=== PATIENT | male | born 1950 | race Caucasian/White ===

== ENCOUNTER 2019-05-05 09:47 | Outpatient (REF) | payer MEDICARE, SELFPAY ==
[2019-05-05 19:19] LABS: Hemoglobin A1C 5.5 % (4.5-6.2)
[2019-05-05 19:43] LABS: ALT 29 U/L (16-63); AST 11 U/L (15-37); Albumin 4.4 g/dL (3.4-5.0); Alkaline Phosphatase 72 U/L (46-116); Anion Gap 9.1 mmol/L (3-11); BUN 16 mg/dL (7-18); Bilirubin, Total 0.8 mg/dL (0.2-1.0); CO2 23.9 mmol/L (21.0-32.0); CREATININE 0.79 mg/dL (0.70-1.30); Calcium 9.3 mg/dL (8.5-10.1); Calculated LDL 84 mg/dL; Chloride 100 mmol/L (98-107); Cholesterol 145 mg/dL (50-200); Glucose 118 mg/dL (70-100); HDL Cholesterol 56 mg/dL (40-60); Sodium 133 mmol/L (136-145); Total Protein 7.3 g/dL (6.4-8.2); Triglyceride 26 mg/dL (30-150)
[2019-05-05 20:58] LABS: Bilirubin, Direct 0.19 mg/dL (0.00-0.20)
== END 2019-05-05 10:07 ==
LOC: NCHCN 09:47
PROVIDERS: PCP Nurse Practitioner Family; Visit Provider Nurse Practitioner Family
DX: R73.9 Hyperglycemia, unspecified (principal); I10 Essential (primary) hypertension; F10.10 Alcohol abuse, uncomplicated; Z13.220 Encounter for screening for lipoid disorders
CPT/HCPCS: 80048; 80061; 80076; 83036

== ENCOUNTER 2020-06-12 10:41 | Outpatient (REF) | payer MEDICARE, SELFPAY ==
[2020-06-12 19:43] LABS: Anion Gap 7.2 mmol/L (3-11); BUN 12 mg/dL (7-18); CO2 26.8 mmol/L (21.0-32.0); Calcium 9.5 mg/dL (8.5-10.1); Chloride 101 mmol/L (98-107); Glucose 111 mg/dL (74-106); Potassium 4.5 mmol/L (3.5-5.1); Sodium 135 mmol/L (136-145)
== END 2020-06-12 11:01 ==
LOC: NCHCN 10:41
PROVIDERS: PCP Nurse Practitioner Family; Visit Provider Nurse Practitioner Family
DX: I10 Essential (primary) hypertension (principal)
CPT/HCPCS: 80048

== ENCOUNTER 2020-10-18 16:06 | Outpatient (REF) | payer OTHER, MEDICAID, SELFPAY ==
[2020-10-18 18:42] LABS: Anion Gap 11.4 mmol/L (3-11); BUN 20 mg/dL (7-18); CO2 24.6 mmol/L (21.0-32.0); CREATININE 0.9 mg/dL (0.70-1.30); Calcium 9.5 mg/dL (8.5-10.1); Chloride 101 mmol/L (98-107); Glucose 98 mg/dL (74-106); Sodium 137 mmol/L (136-145)
== END 2020-10-18 16:07 | disposition home or self-care (01) ==
LOC: NCHCN 16:06
PROVIDERS: PCP Nurse Practitioner Family; Visit Provider Internal Medicine
DX: I10 Essential (primary) hypertension (principal)
CPT/HCPCS: 80048; 84443

== ENCOUNTER 2022-04-11 16:12 | Outpatient (REF) | payer OTHER, MEDICAID, SELFPAY ==
[2022-04-11 19:45] LABS: Anion Gap 10.1 mmol/L (3-11); BUN 13 mg/dL (7-18); CO2 25.9 mmol/L (21.0-32.0); CREATININE 0.8 mg/dL (0.70-1.30); Calcium 9.1 mg/dL (8.5-10.1); Chloride 97 mmol/L (98-107); Glucose 116 mg/dL (74-106); Potassium 4.4 mmol/L (3.5-5.1); Sodium 133 mmol/L (136-145)
== END 2022-04-11 16:13 | disposition home or self-care (01) ==
LOC: NCHCN 16:12
PROVIDERS: PCP Nurse Practitioner Family; Visit Provider Physician Assistant
DX: I10 Essential (primary) hypertension (principal)
CPT/HCPCS: 80048

== ENCOUNTER 2023-04-02 08:55 | Outpatient (REF) | payer OTHER, MEDICAID, SELFPAY ==
--- OUTSIDE RECORDS SUMMARY | 2023-04-02 08:57 | XMS_ITS | Continuity of Care Document ---
Author Name Unknown Organization [facility] Address [address] [place] [address] Care Team Providers Care Donor Services Manager Name Role Phone Marisela Hoskins Primary Care Physician Encounter [facility] Date(s): 01/14/23 - 01/15/[address] [id number] Encounter Diagnosis S/p reverse total shoulder arthroplasty(Discharge Diagnosis) - 01/15/23 Pain in right shoulder(Final) - Essential (primary) hypertension(Final) - Other prison (current) drug therapy(Final) - Presence of right artificial shoulder joint(Final) - Discharge Disposition: Home or Self Care Attending Physician: Yaritza Lindquist PA-C Admitting Physician: Yaritza Lindquist PA-C Referring Physician: Marisela Hoskins PA-C Allergies, Adverse Reactions, Alerts No Known Medication Allergies Assessment and Plan Future Appointments Functional Status 01/15/23 Living Environment No Living Environmen t Information Available Lives In Other: Lives in own home. Lives With Spouse Living Situation Home independently Patient's Responsibilities Driving, Home management, Personal ADL, Other: Reports being (I) prior to hospitalization. 01/15/23 Anti-Embolism Device Activity: Adjusted Anti-Embolism Site Condition: No complic ations 01/14/23 Other exposure to Infectious Disease Non e 01/14/23 Orthopedic/Preventive Devices Sling Medications aspirin 325 mg oral tablet 325 mg = 1 tab, Oral, BID, # 28 tab, 0 Refill(s), Pharmacy: [id number] Start Date: 01/15/23 Stop Date: 01/29/23 Status: Ordered glucosamine/chondroitin/methylsulfonylmethane with Ascorbic Acid and Minerals oral tablet 1 tab, Oral, Daily, # 120 tab, 0 Refill(s) Start Date: 01/12/23 Stop Date: 02/11/23 Status: Ordered lisinopril-hydroCHLOROthiazide 10 mg-12.5 mg oral tablet 1 tab, Oral, every evening Start Date: 04/16/22 Status: Ordered nystatin 100,000 units/g topical cream 1 domonique, Topical, BID, Apply liberally to skin, # 30 g, 0 Refill(s) Start Date: 01/12/23 Status: Ordered oxyCODONE 5 mg oral tablet 5 mg = 1 tab, Oral, every 6 hr, PRN as needed for pain, # 20 tab, 0 Refill(s), Pharmacy: [id number] Start Date: 01/15/23 Status: Ordered Problem List Condition Confirmation Course Effective Dates Status H ealth Status Informant Alcohol abuse Confirmed Active BPH - benign prostatic hyperplasia Confirmed Active Hypertensive disorder Confirmed 09/18/21 Active Osteoarthritis Confirmed Active Right shoulder pain Confirmed Active Procedures Procedure Date Related Diagnosis Body Site Status Arthroplasty, glenohumeral j oint; total shoulder (glenoid and proximal humeral replacement (eg, total shoulder)) 1 01/13/23 Completed 1Reverse, Total. Results Laboratory List Name Date SARS-CoV-2 (COVID-19) Ag POCT 01/14/23 Most recent to oldest [Reference Range]: 1 SARS-CoV-2 (COVID-19) Ag POCT Negative *NA* (01/14/23 8:30 AM) Vital Signs Most recent to oldest [Reference Range]: 1 2 3 Temperature Temporal Artery [36-38 Deg C] 36.3 Deg C (01/15/23 10:11 AM) 36.1 Deg C (01/15/23 7:04 AM) 36.4 Deg C (01/15/23 1:34 AM) Temperature Temporal Artery (DegF) [97.3-100 Deg F] 96.8 Deg F *LOW* (01/14/23 12:32 PM) 96.98 Deg F *LOW* (01/14/23 11:26 AM) Peripheral Pulse Rate [60-100 bpm] 61 bpm (01/15/23 10:11 AM) 56 bpm *LOW* (01/15/23 7:04 AM) 72 bpm (01/15/23 1:34 AM) Heart Rate Monitored [60-100 bpm] 74 bpm (01/14/23 2:54 PM) 61 bpm (01/14/23 12:32 PM) 63 bpm (01/14/23 12:15 PM) Respiratory Rate [12-24 br/min] 18 br/min (01/15/23 10:11 AM) 18 br/min (01/15/23 7:04 AM) 16 br/min (01/15/23 1:34 AM) Blood Pressure [90-140/60-90 mmHg] 152/77mmHg *HI* (01/15/23 10:11 AM) 142/82mmHg *HI* (01/15/23 7:04 AM) 143/76mmHg *HI* (01/15/23 1:34 AM) Mean Arterial Pressure, Cuff [65-140 mmHg] 88 mmHg (01/14/23 12:32 PM) 84 mmHg (01/14/23 12:15 PM) 64 mmHg *LOW* (01/14/23 12:00 PM) Mean Arterial Pressure Cuff 99 mmHg (01/15/23 10:11 AM) 101 mmHg (01/15/23 7:04 AM) 96 mmHg (01/15/23 1:34 AM) Blood Pressure Location Left arm (01/15/23 1:34 AM) Left arm (01/14/23 10:41 PM) Left arm (01/14/23 7:12 PM) Weight 96.4 kg (01/15/23 7:04 AM) 97.2 kg (01/14/23 1:10 PM) 93.7 kg (01/14/23 7:54 AM) Height 180 cm (01/14/23 7:54 AM) Social History Social History Type Response Tobacco Never tobacco user T obacco Use:. Sex Male Implantable Device List Procedure Provider Procedure Date Device Type Site Reverse Total Shoulder Arthroplasty Froylan MNBrennon Martinez MD 01/14/23 Non Biological Shoulder R Device Identifier Serial Number Lot or Batch Number Manufacturing Date Expiration Date Distinct Identification Code MRI Safety Implantable Status Assigning Authority Unknown [id number] Unknown Unknown 12/31/32 Unknown Unknown Active Unknown Unknown Unknown [id number] Unknown 10/14/32 Unknown Unknown Active Unknown Unknown Unknown [id number] Unknown 09/20/32 Unknown Unknown Active Unknown Unknown Unknown [id number] Unknown 11/05/32 Unknown Unknown Active Unknown Unknown Unknown [id number] Unknown 11/14/32 Unknown Unknown Active Unknown Unknown Unknown [id number] Unknown 11/17/32 Unknown Unknown Active Unknown Unknown Unknown [id number] Unknown 11/01/32 Unknown Unknown Active Unknown Unknown Unknown [id number] Unknown 11/25/27 Unknown Unknown Active Unknown Unknown Unknown [id number] Unknown 09/18/32 Unknown Unknown Active Unknown Unknown Unknown [id number] Unknown 09/11/32 Unknown Unknown Active Unknown Hospital Discharge Instructions Patient Education 01/15/2023 08:10:15 Froylan - Post-Operative Instructions Total Shoulder Arthroplasty Post Operative Instructions Total Shoulder Arthro plasty Follow up with Dr. Galeano on at [facility] Orthopaedic Surgery: [phone] Plan to rest and relax today after your procedure/operation. Even after minor surgery you may feel drowsy or tired for several hours. You may also have a sore throat and muscle aches. DO NOT drink alcohol after anesthesia or while taking pain medications. You should not drive any vehicle or operatemachinery until your doctor says it's safe. DO NOT make any major decisions, sign contracts, etc. for 24 hours. Activity: ??? Rest today, tomorrow resume your usual activity . ??? Please start pendulum range of motion exercise at home until seen in clinic for your follow up appointment . ??? Lift no more than 10 pounds until your follow up appointment. Diet: ??? Advance to previous diet as tolerated. Medications: ??? Continue your regular medications ??? Prescription given to patient: Dialudid 2mg tablets, 1-2 tablets orally q4hrs as needed for pain ??? Last dose of pain medication given at hospital : _ _ _ _ _ _ _ _ _ _ _ _ _ _ _ _ _ _ ??? Over the counter medications: Tylenol and/or Ibuprofen every 6 hours when needed for pain. ??? Last dose of over the counter medication given at the hospit al : _ _ _ _ _ _ _ _ _ _ _ _ ??? Start Enteric Coated aspirin 325mg orally twice daily Dressing: ??? Keep waterproof dressing int act . May shower with dressing on. ??? Apply ice pack over dressing site for 20 mins on/20 mins off for the first several days. Special Instructions: ??? You may take a shower after 48 hours. ??? No bathing, soaking or swimming for 2 weeks. ??? You may drive after ALL pain medications are stopped. ??? You may use sling for comfort but can discontinue if comfortable without the sling. ??? Do not place hand above head or behind back. Other: (Type additional instructions in below) YOU SHOULD CALL YOUR DOCTOR AT FOR ANY OF THE FOLLOWING ??? Fever of 101 or higher. ??? Pain that does not lessen with the pain medication prescribed. ??? Cloudy or foul smelling drainage from the incision. ??? Redness, warmth and firmness around the incision . ??? Increased numbness or tingling. ??? Bleeding or continuous oozing that saturates the bandage and does not stop after applying pressure to incision for 20 minutes. ??? Increased swelling of fingers or toes, or severe tightness of bandage not relieved with elevation of limb above the level of your heart. ??? Pale blue or cold fingers/toes or nail beds as compared with the opposite side. ??? IF UNABLE TO REACH YOUR DOCTOR GO TO YOUR NEAREST EMERGENCY ROOM Recommended Treatments for Opioid Induced Constipation Dosage Schedule Drug Brand Names Dose Daily Senna-docusate 8.5-5mg per tablet Senokot 2 tablets by mouth 2 times per day (Hold for loose stool) As Needed Magnesium Hydroxide Milk of Magnesia 30ml by mouth 2 times per day as needed As Needed Polyethylene Glycol Miralax 17 grams dissolved in 8 ounces of water, juice or tea once daily as needed As Needed Bisacodyl Dulcolax 10mg by mouth once a day as needed for constipation As Needed Phosphate enema Fleet enema 120ml rectally once a day as needed for constipation As Needed Magnesium citrate 150 to 300 ml (1.745g/30ml solution) by mouth once a day as needed for constipation This document was electronically generated via computer by the ordering physician: Brennon Galeano MD [facility]opa[facility] Surgery [address] [place] [phone] 01/15/2023 07:22:55 Shoulder Replacement, Care After Shoulder Replacement, Care After This sheet gives you information about how to care for yourself after your procedure. Your health care provider may also give you more specific instructions. If you have problems or questions, contact your health care provider. What can I expect after the procedure? After the procedure, it is common to have: ??? A bruised and stiff shoulder and arm. ??? Some shoulder and arm pain. Follow these instructions at home: Medicines ??? Take lbcn-xfp-ylshrtt and prescription medicines only as told by your health care provider. ??? If you were prescribed an antibiotic medicine, use it as told by your health care provider. Do not stop using the antibiotic even if you start to feel better. ??? Ask your health care provider if the medicine prescribed to you can cause constipation. You mayneed to take these actions to prevent or treat constipation: ??? Drink enough fluid to keep your urine pale yellow. ??? Take oigt-hmg-crlcvms or prescription medicines. ??? Eat foods that are high in fiber, such as beans, whole grains, and fresh fruits and vegetables. ??? Limit foods that are high in fat and processed sugars, such as fried or sweet foods. If you have a sling or immobilizer: ??? Wear the sling or immobilizer as told by your health care provider. Remove it only as told by your health care provider. ??? Loosen the sling or immobilizer if your fingers tingle, become numb, or turn cold and blue. ??? Keep the sling or immobilizer clean and dry. Bathing ??? Do not take baths, swim, or use a hot tub until your health care provider approves. Ask your health care provider if you can take showers. You may only be allowed to take sponge baths. ??? If your sling or immobilizer is not waterproof: ??? Do not let it get wet. ??? Cover it with a watertight covering when you take a bath or a shower. ??? Keep the bandage (dressing) dry until your health care provider says it can be removed. Incision care ??? Follow instructions from your health care provider about how to take care of your incision. Make sure you: ??? Wash your hands with soap and water for at least 20 seconds before and after you change your dressing. If soap and water are not available, use hand vice president network development. ??? Change your dressing as told by your health care provider. ??? Leave kirby, stitches (sutures), skin glue, or adhesive strips in place. These skin closures may need to stay in place for 2 weeks or longer. If adhesive strip edges start to loosen and curl up, you may trim the loose edges. Do not remove adhesive strips completely unless your health care provider tells you to do that. ??? If you have a tube to remove drainage, follow instructions from your health care provider aboutcaring for it. Do not remove the drain tube or any dressings around the tube opening unless your health care provider approves. ??? Check your incision area every day for signs of infection. Check for: ??? More redness, swelling, or pain. ??? More fluid or blood. ??? Warmth. ??? Pus or a bad smell. Managing pain, stiffness, and swelling ??? If directed, put ice on the affected area. To do this: ??? If you have a removable sling, remove it as told by your health care provider. ??? Put ice in a plastic bag. ??? Place a towel between your skin and the bag. ??? Leave the ice on for 20 minutes, 2???3 times a day. ??? Remove the ice if your skin turns bright red. This is very important. If you cannot feel pain, heat, or cold, you have a greater risk of damage to the area. ??? If you have an icing device, use it as directed by your health care provider. ??? Move your fingers and elbow often to reduce stiffness and swelling. Activity ??? Do not use your arm to push yourself up in bed or from a chair. ??? Follow lifting restrictions as told: ??? Do not lift anything that is heavier than a cup of coffee for the first 6 weeks after surgery, or as told by your health care provider. ??? Do not lift anything that is heavier than 10 lb (4.5 kg), or the limit that you are told, for 6months or until your health care provider says that it is safe. ??? Do exercises, including physical therapy, as told by your health care provider. ??? Try not to overuse your shoulder. This includes repetitive pushing or pulling. Early overuse ofthe shoulder may result in later problems. (Overusing the shoulder is easy to do when your pain goes away for the first time.) ??? Avoid overstretching your arm for 6 weeks after surgery, or as told by your health care provider. ??? Avoid sitting for a long time without moving. Get up to take short walks every 1???2 hours. This is important to improve blood flow and breathing. Ask for help if you feel weak or unsteady. ??? Ask for help with some activities. Your health care provider may be able to suggest a clinic oragency for this if you do not have home support. ??? Do not participate in contact sports. Driving ??? Ask your health care provider if the medicine prescribed to you requires you to avoid driving or using machinery. ??? Do not drive for 2???4 weeks after surgery or as told by your health care provider. General instructions ??? Tell your health care provider if you plan to have dental work. Also: ??? Tell your dentist about your joint replacement. ??? Ask your health care provider if there are any special instructions you need to follow before having dental care and routine cleanings. ??? Do not use any products that contain nicotine or tobacco, such as cigarettes, e-cigarettes, andchewing tobacco. These can delay healing. If you need help quitting, ask your health care provider. ??? Keep all follow-up visits. This is important. Contact a health care provider if: ??? You develop a rash. ??? You have a fever. ??? You have any of these signs of infection in your incision area: ??? More redness, swelling, or pain. ??? More fluid or blood. ??? Warmth. ??? Pus or a bad smell. Get help right away if: ??? The edges of the incision site break open after sutures have been removed. ??? You have redness, swelling, pain, or warmth in your leg or arm. ??? You have chest pain or shortness of breath. These symptoms may represent a serious problem that is an emergency. Do not wait to see if the symptoms will go away. Get medical help right away. Call your local emergency services (367 in the [place] Do not drive yourself to the hospital. Summary ??? It is common to have pain and stiffness in your shoulder and arm after the procedure. Put ice on the affected area and take pain medicine as told by your health care provider. ??? Do not use your arm to push yourself up in bed or from a chair. ??? Do exercises, including physical therapy, as told by your health care provider. ??? Check your incision area daily. Call your health care provider if you see signs of infection. This information is not intended to replace advice given to you by your health care provider. Make sure you discuss any questions you have with your health care provider. Document Revised: 01/23/2021 Document Reviewed: 01/23/2021 Elsevier Patient Education ?? 2021 [employer] Follow Up Care 12/26/2022 15:13:21 With:Yaritza Lindquist PA-C Address: [facility] [address] [place] [address] [place] [address]- When:01/21/2023 Comments:POST OP FOLLOW UP Discharge instructions * Annie Holder D: PERFORM Event Display: Discharge Instructions Authored Date: [id number] KELSEY ERIC :1950 Age:72 years Sex:Male Visit Date:01/14/2023 Primary Care Physician: Marisela Hoskins PA-C Hospital Discharge Instructions We would like to thank you for allowing us to assist you with your healthcare needs. The following includes patient education materials and information regarding your injury/illness. Your Next Steps Instructions From Your Care Team Orthopedic Surgery Discharge Instructions tylenol and ibuporfen around the clock with oxycodone for breakthrough pain sling PRN ok to shower with dressing on ok to keep dressing on until follow up in office no movement with shoulder behind head or back ?? Pain Control ?Take your pain relief medication when discomfort first begins. ?Can use stool softener while taking the narcotic to avoid problems with constipation. ?It is okay to start hrhi-cip-zpualdd Naproxen or Ibuprofen??immediately ?? Call your doctor if you: ?Develop a fever over 101 degrees. ?Have increased redness, warmth, discharge, swelling, or hardness around the operative site. ?Circulation changes such as tingling, numbness or your fingers/toes appear blue or white. ?Your pain is not adequately controlled, despite taking your pain medication routinely. ?? On the day of surgery, or while taking narcotic pain medication: No driving, operating power equipment,?? drinking alcohol,?? or taking mood altering drugs? Apply warm, moist compress to IV site if sore or red, for 20 minutes, 4 times a day, for 2-3 days.?? Call your doctor if IV site soreness or redness persists. In the event of any problems after surgery, contact your doctor or the Emergency Room @ . Ortho Office: [phone]?? Follow Up Appointments Follow Up with??Yaritza Lindquist PA-C When:??01/21/2023 02:00 AM EDT Why: POST OP FOLLOW UP Where: [facility] [address] [place] [address] [address] [place] [address]- Medications What How Much When Instructions Next Dose New aspirin (aspirin 325 mg oral tablet) 1 tab Oral (given by mouth) 2 times a day Duration: 14 Days Pickup at [facility] 01/16 @ 9am New oxyCODONE (oxyCODONE 5 mg oral tablet) 1 tab Oral (given by mouth) Every 6 hours as needed for as needed for pain Pickup at [facility] As needed Last dose 01/15 @ 0450 AM Unchanged glucosamine/ chondroitin/ methylsulfonylmethane (glucosamine/ chondroitin/ methylsulfonylmethane with Ascorbic Acid and Minerals oral tablet) 1 tab Oral (given by mouth) Every day Duration: 30 Days resume home dose Unchanged lisinopril-hydroCHLOROthiazide (lisinopril-hydroCHLOROthiazide 10 mg- 12.5 mg oral tablet) 1 tab Oral (given by mouth) Every evening 01/15 @ 6pm Unchanged nystatin topical (nystatin 100,000 units/ g topical cream) 1 Application Topical (on the skin) 2 times a day Apply liberally ??to skin ?? Resume home dose Pharmacy Information [facility]: [address], [place] [id number] [phone] Your Summary Your Care Team Admitting Physician - Yaritza Lindquist PA-C Attending Physician - Yaritza Lindquist PA-C Primary Care Physician - Marisela Hoskins PA-C Referring Physician - Marisela Hoskins PA-C Your Diagnosis S/p reverse total shoulder arthroplasty Hypertension Pre-op evaluation Procedures Performed ???Arthroplasty, glenohumeral joint; total shoulder (glenoid and proximal humeral replacement (eg, total shoulder)) (01/14/2023) Discharge Vitals Temperature??(Temporal Artery) 97.0 ??F (36.1 ??C) Heart Rate??(Peripheral) 56 Respiratory Rate?? 18 Blood Pressure?? 142/82?? Blood Pressure?? 146/90(Supine)?? Weight?? 212.56 lb (96.4 kg) Devices Implanted/Removed This Visit Notice: You have devices implanted this visit that may not be MRI compatible. Implanted Reverse Total Shoulder Arthroplasty Shoulder R ???Unknown Device 01/14/2023???Unknown Device 01/14/2023???Unknown Device 01/14/2023???Unknown Device 01/14/2023???Unknown Device 01/14/2023???Unknown Device 01/14/2023???Unknown Device 01/14/2023???Unknown Device 01/14/2023???Unknown Device 01/14/2023???Unknown Device 01/14/2023 Education Materials Post Operative Instructions Total Shoulder Arthro plasty ? Follow up with Dr. Galeano on at ? [facility]: [phone] Plan to rest and relax today after your procedure/operation. Even after minor surgery you may feel drowsy or tired for several hours. You may also have a sore throat and muscle aches. DO NOT drink alcohol after anesthesia or while taking pain medications. You should not drive any vehicle or operatemachinery until your doctor says it's safe. DO NOT make any major decisions, sign contracts, etc. for 24 hours. ? Activity: ? Rest today, tomorrow resume your usual activity . ? Please start pendulum range of motion exercise at home until seen in clinic for your follow up appointment . ? Lift no more than 10 pounds until your follow up appointment. ? Diet: ? Advance to previous diet as tolerated. Medications: ? Continue your regular medications ? Prescription given to patient: Dialudid 2mg tablets, 1-2 tablets orally q4hrs as needed for pain ? Last dose of pain medication given at hospital : _ _ _ _ _ _ _ _ _ _ _ _ _ _ _ _ _ _ ? Over the counter medications: Tylenol and/or Ibuprofen every 6 hours when needed for pain. ? Last dose of over the counter medication given at the [facility] al : _ _ _ _ _ _ _ _ _ _ _ _ ? Start Enteric Coated aspirin 325mg orally twice daily Dressing: ? Keep waterproof dressing int act . May shower with dressing on. ? Apply ice pack over dressing site for 20 mins on/20 mins off for the first several days. Special Instructions: ? You may take a shower after 48 hours. ? No bathing, soaking or swimming for 2 weeks. ? You may drive after ALL pain medications are stopped. ? You may use sling for comfort but can discontinue if comfortable without the sling. ? Do not place hand above head or behind back. ? Other: (Type additional instructions in below) ? YOU SHOULD CALL YOUR DOCTOR AT FOR ANY OF THE FOLLOWING ? Fever of 101 or higher. ? Pain that does not lessen with the pain medication prescribed. ? Cloudy or foul smelling drainage from the incision. ? Redness, warmth and firmness around the incision . ? Increased numbness or tingling. ? Bleeding or continuous oozing that saturates the bandage and does not stop after applying pressure to incision for 20 minutes. ? Increased swelling of fingers or toes, or severe tightness of bandage not relieved with elevation of limb above the level of your heart. ? Pale blue or cold fingers/toes or nail beds as compared with the opposite side. ? IF UNABLE TO REACH YOUR DOCTOR GO TO YOUR NEAREST EMERGENCY ROOM ? Recommended Treatments for Opioid Induced Constipation Dosage Schedule Drug Brand Names Dose Daily Senna-docusate 8.5-5mg per tablet Senokot 2 tablets by mouth 2 times per day (Hold for loose stool) As Needed Magnesium Hydroxide Milk of Magnesia 30ml by mouth 2 times per day as needed As Needed Polyethylene Glycol Miralax 17 grams dissolved in 8 ounces of water, juice or tea once daily as needed As Needed Bisacodyl Dulcolax 10mg by mouth once a day as needed for constipation As Needed Phosphate enema Fleet enema 120ml rectally once a day as needed for constipation As Needed Magnesium citrate ? 150 to 300 ml (1.745g/30ml solution) by mouth once a day as needed for constipation ? This document was electronically generated via computer by the ordering physician: Brennon Galeano MD ? [facility] [address] [place] [address] Drive ? [place] [address] Shoulder Replacement, Care After This sheet gives you information about how to care for yourself after your procedure. Your health care provider may also give you more specific instructions. If you have problems or questions, contact your health care provider. What can I expect after the procedure? After the procedure, it is common to have: ? A bruised and stiff shoulder and arm. ? Some shoulder and arm pain. Follow these instructions at home: Medicines ? Take jpzq-vpf-bwgkgps and prescription medicines only as told by your health care provider. ? If you were prescribed an antibiotic medicine, use it as told by your health care provider. Do not stop using the antibiotic even if you start to feel better. ? Ask your health care provider if the medicine prescribed to you can cause constipation. You may need to take these actions to prevent or treat constipation: ? Drink enough fluid to keep your urine pale yellow. ? Take gqpr-ygt-rbkyzez or prescription medicines. ? Eat foods that are high in fiber, such as beans, whole grains, and fresh fruits and vegetables. ? Limit foods that are high in fat and processed sugars, such as fried or sweet foods. If you have a sling or immobilizer: ? Wear the sling or immobilizer as told by your health care provider. Remove it only as told by your health care provider. ? Loosen the sling or immobilizer if your fingers tingle, become numb, or turn cold and blue. ? Keep the sling or immobilizer clean and dry. Bathing ? Do not take baths, swim, or use a hot tub until your health care provider approves. Ask your healthcare provider if you can take showers. You may only be allowed to take sponge baths. ? If your sling or immobilizer is not waterproof: ? Do not let it get wet. ? Cover it with a watertight covering when you take a bath or a shower. ? Keep the bandage (dressing) dry until your health care provider says it can be removed. Incision care ? Follow instructions from your health care provider about how to take care of your incision. Make sure you: ? Wash your hands with soap and water for at least 20 seconds before and after you change your dressing. If soap and water are not available, use hand vice president network development. ? Change your dressing as told by your health care provider. ? Leave kirby, stitches (sutures), skin glue, or adhesive strips in place. These skin closures may need to stay in place for 2 weeks or longer. If adhesive strip edges start to loosen and curl up, you may trim the loose edges. Do not remove adhesive strips completely unless your health care provider tells you to do that. ? If you have a tube to remove drainage, follow instructions from your health care provider about caring for it. Do not remove the drain tube or any dressings around the tube opening unless your healthcare provider approves. ? Check your incision area every day for signs of infection. Check for: ? More redness, swelling, or pain. ? More fluid or blood. ? Warmth. ? Pus or a bad smell. Managing pain, stiffness, and swelling ? If directed, put ice on the affected area. To do this: ? If you have a removable sling, remove it as told by your health care provider. ? Put ice in a plastic bag. ? Place a towel between your skin and the bag. ? Leave the ice on for 20 minutes, 2???3 times a day. ? Remove the ice if your skin turns bright red. This is very important. If you cannot feel pain, heat, or cold, you have a greater risk of damage to the area. ? If you have an icing device, use it as directed by your health care provider. ? Move your fingers and elbow often to reduce stiffness and swelling. Activity ? Do not use your arm to push yourself up in bed or from a chair. ? Follow lifting restrictions as told: ? Do not lift anything that is heavier than a cup of coffee for the first 6 weeks after surgery, or as told by your health care provider. ? Do not lift anything that is heavier than 10 lb (4.5 kg), or the limit that you are told, for 6 months or until your health care provider says that it is safe. ? Do exercises, including physical therapy, as told by your health care provider. ? Try not to overuse your shoulder. This includes repetitive pushing or pulling. Early overuse of theshoulder may result in later problems. (Overusing the shoulder is easy to do when your pain goes away for the first time.) ? Avoid overstretching your arm for 6 weeks after surgery, or as told by your health care provider. ? Avoid sitting for a long time without moving. Get up to take short walks every 1???2 hours. This isimportant to improve blood flow and breathing. Ask for help if you feel weak or unsteady. ? Ask for help with some activities. Your health care provider may be able to suggest a clinic or agency for this if you do not have home support. ? Do not participate in contact sports. Driving ? Ask your health care provider if the medicine prescribed to you requires you to avoid driving or using machinery. ? Do not drive for 2???4 weeks after surgery or as told by your health care provider. General instructions ? Tell your health care provider if you plan to have dental work. Also: ? Tell your dentist about your joint replacement. ? Ask your health care provider if there are any special instructions you need to follow before having dental care and routine cleanings. ? Do not use any products that contain nicotine or tobacco, such as cigarettes, e- cigarettes, and chewing tobacco. These can delay healing. If you need help quitting, ask your health care provider. ? Keep all follow-up visits. This is important. Contact a health care provider if: ? You develop a rash. ? You have a fever. ? You have any of these signs of infection in your incision area: ? More redness, swelling, or pain. ? More fluid or blood. ? Warmth. ? Pus or a bad smell. Get help right away if: ? The edges of the incision site break open after sutures have been removed. ? You have redness, swelling, pain, or warmth in your leg or arm. ? You have chest pain or shortness of breath. These symptoms may represent a serious problem that is an emergency. Do not wait to see if the symptoms will go away. Get medical help right away. Call your local emergency services (911 in the [place] Do not drive yourself to the hospital. Summary ? It is common to have pain and stiffness in your shoulder and arm after the procedure. Put ice on the affected area and take pain medicine as told by your health care provider. ? Do not use your arm to push yourself up in bed or from a chair. ? Do exercises, including physical therapy, as told by your health care provider. ? Check your incision area daily. Call your health care provider if you see signs of infection. This information is not intended to replace advice given to you by your health care provider. Make sure you discuss any questions you have with your health care provider. Document Revised: 01/23/2021 Document Reviewed: 01/23/2021 Elsevier Patient Education ?? 2021 [employer] Patient Name:KELSEY ERIC Esha I have received this information and my questions have been answered. Patient/Tap Builder Name: Patient/Tap Builder Signature: Relationship to Patient: Witness Name/Signature: Date: Electronically Signed on: 01/15/2023 09:57 EDTSigned by:MIKEL manager field services Note * Annie Holder: PERFORM Event Display: Case Management Note Authored Date: [id number] Discharge instructions/Post-op Education on Shoulder replacement reviewed with pt and at bedside. Pt/ engaged in education and able to provide teach back of reviewed material. Pt aware of follow up with Ortho. 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 Pt denies any home meds or personal belongings at [facility]. OT Evaluation done at this time for pendulum exercise education and review of how to apply sling. Pt was able to demonstrate this appropriately. Contact infoprovided. No HH services ordered upon discharge. Pt denies any additional questions or concerns at this time. Pharmacology Progress note * Fabi Martinez PharmD: PERFORM Event Display: Pharmacy Progress Note Authored Date: [id number] Pharmacy Progress Note Med history updated with [facility] Electronically Signed on 01/12/23 04:20 PM Fabi Martinez PharmD Progress note * Yairtza Lindquist PA-C: PERFORM Event Display: Progress Note - Physician Authored Date: [id number] KELSEY ERIC :1950 Age:72 years Sex:Male Visit Date:01/14/2023 Primary Care Physician: Marisela Hoskins PA-C Subjective POD 1 R RTSA doing well. no overnight events. no emesis. Objective Vitals & Measurements T:??36.1?C ??(Temporal Artery)?? TMIN:??35.9?C ??(Temporal Artery)?? TMAX:??36.8?C ??(Temporal Artery)?? HR:??56??(Peripheral)?? RR:??18?? BP:??142/82?? BP:??146/90(Supine)?? SpO2:??98%??WT:??96.4??kg?? Pain Score:??4?? O2 Therapy:??Room air?? Physical Exam alert and oriented. NAD. incision is dressed/dry. DNV grossly intact. Assessment/Plan 1.??S/p reverse total shoulder arthroplasty??Z96.619 POD 1 R RTSA sling PRN pain fairly well controlled ok to d/c home Hypertension??I10 Pre-op evaluation??Z01.818 Orders: aspirin, 325 mg = 1 tab, Oral, Tab, BID, First Dose: 01/14/23 21:00:00 EDT, Routine ceFAZolin, 2 g = 50 mL, IV Piggyback, Soln-IV, every 8 hr for 3 doses, Antibiotic Indication Prophylaxis- surgical, Administer over: 0.5 hr, First Dose: 01/14/23 18:00:00 EDT, Stop Date: 01/15/23 17:59:00 EDT, Physician Stop, Routine, 100 mL/hr Colace, 200 mg = 2 cap, Oral, Cap, BID, First Dose: 01/14/23 21:00:00 EDT, Routine HYDROmorphone, 0.8 mg = 0.8 mL, IV Push, Soln, every 2 hr, PRN pain, severe, First Dose: 01/14/23 14:07:00 EDT, Routine ibuprofen, 600 mg = 1 tab, Oral, Tab, every 6 hr, PRN pain, mild, First Dose: 01/14/23 14:07:00 EDT, Routine lidocaine 1% injectable solution, 5 mg 0.5 mL, Intradermal, Soln, As Directed, PRN other (see comment), First Dose: 01/14/23 14:07:00 EDT, Routine Milk of Magnesia, 30 mL, Oral, Susp, TID, PRN constipation, First Dose: 01/14/23 14:07:00 EDT, Routine ondansetron, 4 mg = 2 mL, IV Push, Soln, every 6 hr, PRN nausea, First Dose: 01/14/23 14:07:00 EDT,Routine Percocet 5 mg-325 mg oral tablet, 1 tab, Oral, Tab, every 4 hr, PRN pain, moderate, First Dose: 01/14/23 14:07:00 EDT, Routine Normal Saline Flush, 10 mL, IV Push, Soln, every 12 hr (alejandra), First Dose: 01/14/23 21:00:00 EDT, Routine Sodium Chloride 0.9% 1,000 mL, Total Volume (mL): 1,000, 1,000 mL, Soln-IV, IV, 30 mL/hr, Start Date: 01/14/23 14:07:00 EDT, Populate Charting Weight From Order lisinopril-hydroCHLOROthiazide 10 mg-12.5 mg oral tablet, 10/12.5 mg, Oral, every evening, First Dose: 01/14/23 18:00:00 EDT, Routine Bladder Scan, 01/14/23 14:07:00 EDT, Stop date 01/14/23 14:07:00 EDT, Per protocol every 4-6 hrs for reduced urine volumes., 01/14/23 14:07:00 EDT Communication Order, 01/14/23 14:07:00 EDT, Notify clinician if more than 4L/min required to maintain SpO2 > = 90% Communication Order, 01/14/23 14:07:00 EDT, Call Dr. Fernandes for post-operative Orthopedic complications Communication Order, 01/14/23 14:07:00 EDT, May use own CPAP with standard settings. Diet Order, 01/14/23 14:07:00 EDT, Regular Incentive Spirometry by Patient, 01/14/23 14:56:00 EDT, Other (please specify) Neurovascular Assessment, 01/14/23 14:12:00 EDT, every 4 hr Notify Provider, 01/14/23 14:07:00 EDT, Constant order, If more than 2 straight catheterizations. Nursing Care, 01/14/23 14:07:00 EDT, Stop date 01/14/23 14:07:00 EDT, Apply Sling PSO Place in Observation, Observation, Observation, 01/14/23 11:37:00 EDT, 01/14/23 11:37:00 EDT, 01/14/23 11:37:00 EDT, 1 midnight or less Resuscitation Status, 01/14/23 14:07:00 EDT, Full Code Sequential Compression Devices (SCD's), 01/14/23 14:07:00 EDT, Constant Order, Intermittent pneumatic compression, 01/14/23 14:07:00 EDT Straight Catheter Insertion, PRN, Every 4-6 hrs to keep bladder volume below 300 mLs. Up with Assistance, 01/14/23 14:07:00 EDT, Constant Order, Starting Today, 01/14/23 14:07:00 EDT XR Shoulder Complete 2+ Views Right, 01/14/23 11:38:00 EDT, Routine, Reason: post op, AP and true GH AP, Transport Mode: Patient Bed, Exam to be performed outside organization? Electronically Signed on 01/15/23 09:08 AM Yaritza Lindquist PA-C History and physical note * Jessica Gambino: PERFORM Event Display: History and Physical Authored Date: [id number] KELSEY ERIC :1950 Age:72 years Sex:Male Primary Care Physician: Marisela Hoskins PA-C Visit Date:??12/11/2022 [1] ? 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 Review of Systems Constitutional:?No??fevers,?No??chills,?No??sweats Eye:?No??recent visual problems ENT:?No??ear pain,?No??nasal congestion,?No??sore throat Respiratory:?No??shortness of breath,?No??cough Cardiovascular:?No??Chest pain,?No??palpitations,?No??syncope Gastrointestinal:?Nonausea,?No??vomiting,?No??diarrhea Genitourinary:?No??hematuria Sushant/Lymph:?No??bruising tendency,?No??swollen lymph glands Endocrine:?No??excessive thirst,??No??excessive hunger Musculoskeletal:??No??back pain,??No??neck pain,??Positive for??joint pain,??No??muscle pain,??Positive for??decreased range of motion Integumentary:?No??rash,?No??pruritus,?No??abrasions Neurologic: Alert & oriented X 4 Psychiatric:?No??anxiety,?No??depression Physical Exam Well-nourished well-developed no acute distress alert and oriented appearing stated age. ??Has normal??elbow wrist hand range of motion normal cap refill distally no open wounds signs of erythema or infection neurologically intact distally.?? Shoulder range of motion is limited secondary to pain but is generally overhead with some weakness??in the rotator cuff. ??Review of MRI reveals??glenohumeral joint arthritis and a 3 tendon a repairable rotator cuff tear. Assessment/Plan 1.??Right shoulder pain??M25.511 ?Right shoulder rotator cuff arthropathy. ??Options watchful waiting??therapy injection??or surgical intervention for reverse arthroplasty went over the procedure in detail as well as risks and benefits for that and at this point he is going to consider his options that might be leaning a bit t oward surgery but we will see??he will call us??in the future to make an assessment of whether or not he wants to proceed??with anything invasive. Problem List/Past Medical History Ongoing ?Hypertensive disorder ??Right shoulder pain Historical ?No qualifying data Medications ??glucosamine [id number] ??lisinopril-hydroCHLOROthiazide 10 mg-12.5 mg oral tablet, 1 tab, Oral, Daily Allergies No Known Medication Allergies Social History Electronic Cigarette/Vaping ??Electronic Cigarette Use: Never. Employment/School ??Retired Other Tobacco ??Never tobacco user Tobacco Use:. [2] [1]??Office Visit Note; Brennon Cazares MD 12/11/2022 11:37 EDT [2]??Office Visit Note; Brennon Cazares MD 12/11/2022 11:37 EDT Electronically Signed on 01/13/23 10:45 AM Jessica Gambino Electronically Signed on 01/14/23 11:34 AM Brennon Cazares MD * Brennon Cazares MD: PERFORM Event Display: History and Physical Authored Date: [id number] Patient seen in preoperative hold no change in generalized health status H&P updated Electronically Signed on 01/14/23 12:01 PM Brennon Cazares MD Discharge summary * Yaritza Lindquist PA-C: PERFORM Event Display: Discharge Summary Authored Date: [id number] KELSEY ERIC :1950 Age:72 years Sex:Male Visit Date:01/14/2023 Primary Care Physician: Marisela Hoskins PA-C Hospital Course 72-year-old gentleman was taken to the operating room??on 01/14/2023 for an elective right reverse total shoulder arthroplasty, for details see dictated op report. ??Postoperatively patient did well. ??He completed appropriate course of antibiotics.?? He will be discharged home.?? Sling as needed. ??Discussed specifically no movement with the shoulder behind the head or the back. ??He will be on aspirin 325 twice daily for DVT and PE prophylaxis. Physical Exam Vitals & Measurements T:??36.1?C ??(Temporal Artery)?? TMIN:??35.9?C ??(Temporal Artery)?? TMAX:??36.8?C ??(Temporal Artery)?? HR:??56??(Peripheral)?? RR:??18?? BP:??142/82?? BP:??146/90(Supine)?? SpO2:??98%??WT:??96.4??kg?? Pain Score:??4?? O2 Therapy:??Room air?? Medications Inpatient aspirin, 325 mg= 1 tab, Oral, BID ceFAZolin, 2 g= 50 mL, IV Piggyback, every 8 hr Colace, 200 mg= 2 cap, Oral, BID HYDROmorphone, 0.8 mg= 0.8 mL, IV Push, every 2 hr, PRN ibuprofen, 600 mg= 1 tab, Oral, every 6 hr, PRN lidocaine 1% injectable solution, 5 mg= 0.5 mL, Intradermal, As Directed, PRN lisinopril-hydroCHLOROthiazide 10 mg-12.5 mg oral tablet, 10/12.5 mg, Oral, every evening Milk of Magnesia, 30 mL, Oral, TID, PRN Normal Saline Flush, 10 mL, IV Push, every 12 hr (alejandra) ondansetron, 4 mg= 2 mL, IV Push, every 6 hr, PRN Percocet 5 mg-325 mg oral tablet, 1 tab, Oral, every 4 hr, PRN Sodium Chloride 0.9% 1,000 mL, 1000 mL, IV Home aspirin 325 mg oral tablet, 325 mg= 1 tab, Oral, BID glucosamine/chondroitin/methylsulfonylmethane with Ascorbic Acid and Minerals oral tablet, 1 tab, Oral, Daily lisinopril-hydroCHLOROthiazide 10 mg-12.5 mg oral tablet, 1 tab, Oral, every evening nystatin 100,000 units/g topical cream, 1 domonique, Topical, BID oxyCODONE 5 mg oral tablet, 5 mg= 1 tab, Oral, every 6 hr, PRN Procedure/Surgical History ???Arthroplasty, glenohumeral joint; total shoulder (glenoid and proximal humeral replacement (eg, total shoulder)) (01/14/2023) Social History Alcohol Current, Daily- Comments: one a day Electronic Cigarette/Vaping Electronic Cigarette Use: Never. Employment/School Retired Home/Environment Lives with Children, Spouse. Living situation: Home/Independent. Feels unsafe at home: No. Other Substance Use Current, Daily- Comments: once daily Tobacco Never tobacco user Tobacco Use:. Discharge Plan 1.??S/p reverse total shoulder arthroplasty??Z96.619 Orthopedic Surgery Discharge Instructions tylenol and ibuporfen around the clock with oxycodone for breakthrough pain sling PRN ok to shower with dressing on ok to keep dressing on until follow up in office no movement with shoulder behind head or back ?? Pain Control ?Take your pain relief medication when discomfort first begins. ?Can use stool softener while taking the narcotic to avoid problems with constipation. ?It is okay to start bxft-lud-jskzuie Naproxen or Ibuprofen??immediately ?? Call your doctor if you: ?Develop a fever over 101 degrees. ?Have increased redness, warmth, discharge, swelling, or hardness around the operative site. ?Circulation changes such as tingling, numbness or your fingers/toes appear blue or white. ?Your pain is not adequately controlled, despite taking your pain medication routinely. ?? On the day of surgery, or while taking narcotic pain medication: No driving, operating power equipment,?? drinking alcohol,?? or taking mood altering drugs? Apply warm, moist compress to IV site if sore or red, for 20 minutes, 4 times a day, for 2-3 days.?? Call your doctor if IV site soreness or redness persists. In the event of any problems after surgery, contact your doctor or the Emergency Room @ . Ortho Office: [phone]?? Hypertension??I10 Pre-op evaluation??Z01.818 Orders: aspirin, 325 mg = 1 tab, Oral, Tab, BID, First Dose: 01/14/23 21:00:00 EDT, Routine aspirin 325 mg oral tablet, 325 mg = 1 tab, Oral, BID, # 28 tab, 0 Refill(s), Pharmacy: [id number] ceFAZolin, 2 g = 50 mL, IV Piggyback, Soln-IV, every 8 hr for 3 doses, Antibiotic Indication Prophylaxis- surgical, Administer over: 0.5 hr, First Dose: 01/14/23 18:00:00 EDT, Stop Date: 01/15/23 17:59:00 EDT, Physician Stop, Routine, 100 mL/hr Colace, 200 mg = 2 cap, Oral, Cap, BID, First Dose: 01/14/23 21:00:00 EDT, Routine HYDROmorphone, 0.8 mg = 0.8 mL, IV Push, Soln, every 2 hr, PRN pain, severe, First Dose: 01/14/23 14:07:00 EDT, Routine ibuprofen, 600 mg = 1 tab, Oral, Tab, every 6 hr, PRN pain, mild, First Dose: 01/14/23 14:07:00 EDT, Routine lidocaine 1% injectable solution, 5 mg 0.5 mL, Intradermal, Soln, As Directed, PRN other (see comment), First Dose: 01/14/23 14:07:00 EDT, Routine Milk of Magnesia, 30 mL, Oral, Susp, TID, PRN constipation, First Dose: 01/14/23 14:07:00 EDT, Routine ondansetron, 4 mg = 2 mL, IV Push, Soln, every 6 hr, PRN nausea, First Dose: 01/14/23 14:07:00 EDT,Routine oxyCODONE 5 mg oral tablet, 5 mg = 1 tab, Oral, every 6 hr, PRN as needed for pain, # 20 tab, 0 Refill(s), Pharmacy: [id number] Percocet 5 mg-325 mg oral tablet, 1 tab, Oral, Tab, every 4 hr, PRN pain, moderate, First Dose: 01/14/23 14:07:00 EDT, Routine Normal Saline Flush, 10 mL, IV Push, Soln, every 12 hr (alejandra), First Dose: 01/14/23 21:00:00 EDT, Routine Sodium Chloride 0.9% 1,000 mL, Total Volume (mL): 1,000, 1,000 mL, Soln-IV, IV, 30 mL/hr, Start Date: 01/14/23 14:07:00 EDT, Populate Charting Weight From Order lisinopril-hydroCHLOROthiazide 10 mg-12.5 mg oral tablet, 10/12.5 mg, Oral, every evening, First Dose: 01/14/23 18:00:00 EDT, Routine Bladder Scan, 01/14/23 14:07:00 EDT, Stop date 01/14/23 14:07:00 EDT, Per protocol every 4-6 hrs for reduced urine volumes., 01/14/23 14:07:00 EDT Communication Order, 01/14/23 14:07:00 EDT, Notify clinician if more than 4L/min required to maintain SpO2 > = 90% Communication Order, 01/14/23 14:07:00 EDT, Call Dr. Fernandes for post-operative Orthopedic complications Communication Order, 01/14/23 14:07:00 EDT, May use own CPAP with standard settings. Diet Order, 01/14/23 14:07:00 EDT, Regular Incentive Spirometry by Patient, 01/14/23 14:56:00 EDT, Other (please specify) Neurovascular Assessment, 01/14/23 14:12:00 EDT, every 4 hr Notify Provider, 01/14/23 14:07:00 EDT, Constant order, If more than 2 straight catheterizations. Nursing Care, 01/14/23 14:07:00 EDT, Stop date 01/14/23 14:07:00 EDT, Apply Sling PSO Place in Observation, Observation, Observation, 01/14/23 11:37:00 EDT, 01/14/23 11:37:00 EDT, 01/14/23 11:37:00 EDT, 1 midnight or less Resuscitation Status, 01/14/23 14:07:00 EDT, Full Code Sequential Compression Devices (SCD's), 01/14/23 14:07:00 EDT, Constant Order, Intermittent pneumatic compression, 01/14/23 14:07:00 EDT Straight Catheter Insertion, PRN, Every 4-6 hrs to keep bladder volume below 300 mLs. Up with Assistance, 01/14/23 14:07:00 EDT, Constant Order, Starting Today, 01/14/23 14:07:00 EDT XR Shoulder Complete 2+ Views Right, 05/24/23 11:38:00 EDT, Routine, Reason: post op, AP and true GH AP, Transport Mode: Patient Bed, Exam to be performed outside organization? All Diagnoses This Visit S/p reverse total shoulder arthroplasty Hypertension Pre-op evaluation Patient Instructions Orthopedic Surgery Discharge Instructions tylenol and ibuporfen around the clock with oxycodone for breakthrough pain sling PRN ok to shower with dressing on ok to keep dressing on until follow up in office no movement with shoulder behind head or back ?? Pain Control ?Take your pain relief medication when discomfort first begins. ?Can use stool softener while taking the narcotic to avoid problems with constipation. ?It is okay to start haja-oza-qisdtkd Naproxen or Ibuprofen??immediately ?? Call your doctor if you: ?Develop a fever over 101 degrees. ?Have increased redness, warmth, discharge, swelling, or hardness around the operative site. ?Circulation changes such as tingling, numbness or your fingers/toes appear blue or white. ?Your pain is not adequately controlled, despite taking your pain medication routinely. ?? On the day of surgery, or while taking narcotic pain medication: No driving, operating power equipment,?? drinking alcohol,?? or taking mood altering drugs? Apply warm, moist compress to IV site if sore or red, for 20 minutes, 4 times a day, for 2-3 days.?? Call your doctor if IV site soreness or redness persists. In the event of any problems after surgery, contact your doctor or the Emergency Room @ . Ortho Office: [phone]?? Patient Education Froylan - Post-Operative Instructions Total Shoulder Arthroplasty Shoulder Replacement, Care After Follow Up With When Contact Information Yaritza Lindquist PA-C 01/21/2023 02:00 AM EDT [facility] [facility] [address] [place] [address] [address] [place] [address]- Additional Instructions: POST OP FOLLOW UP Medication Reconciliation New Prescription aspirin (aspirin 325 mg oral tablet)1 tab Oral (given by mouth) 2 times a day for 14 Days. Refills:0. ?? oxyCODONE (oxyCODONE 5 mg oral tablet)1 tab Oral (given by mouth) every 6 hours as needed as neededfor pain. Refills: 0. ?? Unchanged glucosamine/chondroitin/methylsulfonylmethane (glucosamine/chondroitin/methylsulfonylmethane with Ascorbic Acid and Minerals oral tablet)1 tab Oral (given by mouth) every day for 30 Days. ?? lisinopril-hydroCHLOROthiazide (lisinopril-hydroCHLOROthiazide 10 mg-12.5 mg oral tablet)1 tab Oral(given by mouth) every evening. ?? nystatin topical (nystatin 100,000 units/g topical cream)1 Application Topical (on the skin) 2 times a day. Apply liberally to skin. Electronically Signed on 01/15/23 09:14 AM Yaritza Lindquist PA-C Patient Care team information Care Team Personnel Name: Marisela Hoskins PA-C Position: PowerChart View Only Member Role: Informed Provider Address: Address: [address] [address]- Care Team Related Persons Name: BRENDA ERIC Address: Home [address] [facility], [id number]
--- OUTSIDE RECORDS SUMMARY | 2023-04-02 08:57 | XMS_ITS | Continuity of Care Document ---
Author Name Unknown Organization [facility] Address [address] [place] [address] Care Team Providers Care Lens Inspector Name Role Phone Marisela Hoskins Primary Care Physician [phone] Encounter [facility]_OR Date(s): 11/14/22 - 11/14/[address] [address] Encounter Diagnosis Right shoulder pain(Discharge Diagnosis) - 11/14/22 Discharge Disposition: Home or Self Care Attending Physician: Yaritza Lindquist PA-C Admitting Physician: Yaritza Lindquist PA-C Referring Physician: Yaritza Lindquist PA-C Allergies, Adverse Reactions, Alerts No Known Medication Allergies Assessment and Plan Future Appointments Medications glucosamine [id number] glucosamine [id number]-[id number] Start Date: 04/16/22 Status: Ordered lisinopril-hydroCHLOROthiazide 10 mg-12.5 mg oral tablet 1 tab, Oral, Daily Start Date: 04/16/22 Status: Ordered Problem List Condition Confirmation Course Effective Dates Status [facility] atus Informant Hypertensive disorder Confirmed 09/18/21 Active Right shoulder pain Confirmed Active Social History Social History Type Response Tobacco Never tobacco user T obacco Use:. Sex Male Patient Care team information Care Team Personnel Name: Marisela Hoskins PA-C Position: PowerChart View Only Member Role: Primary Care Physician Address: Address: [facility] [address], [place] [address]
[2023-04-02 19:23] LABS: ALT 18 U/L (16-63); AST 17 U/L (15-37); Alkaline Phosphatase 71 U/L (46-116); Anion Gap 11.5 mmol/L (3-11); BUN 15 mg/dL (7-18); Bilirubin, Total 0.6 mg/dL (0.2-1.0); CO2 22.5 mmol/L (21.0-32.0); CREATININE 0.9 mg/dL (0.70-1.30); Calcium 9.2 mg/dL (8.5-10.1); Chloride 94 mmol/L (98-107); Estimated GFR 90.74 (mL/min/1.73m2); Glucose 96 mg/dL (74-106); Potassium 4.4 mmol/L (3.5-5.1); Sodium 128 mmol/L (136-145); Total Protein 7.2 g/dL (6.4-8.2)
[2023-04-02 19:27] LABS: Hemoglobin A1C 5.5 % (<5.7)
== END 2023-04-02 08:56 | disposition home or self-care (01) ==
LOC: NCHCN 08:55
PROVIDERS: PCP Nurse Practitioner Family; Visit Provider Physician Assistant
DX: I10 Essential (primary) hypertension (principal); E66.9 Obesity, unspecified; Z12.5 Encounter for screening for malignant neoplasm of prostate; R79.89 Other specified abnormal findings of blood chemistry; N40.0 Benign prostatic hyperplasia without lower urinary tract symptoms
CPT/HCPCS: 80053; 84153; 83036

== ENCOUNTER 2023-11-04 15:46 | Outpatient (REF) | payer OTHER, MEDICAID, SELFPAY ==
[2023-11-04 20:05] LABS: Anion Gap 10.3 mmol/L (3-11); BUN 16 mg/dL (7-18); CO2 23.7 mmol/L (21.0-32.0); CREATININE 0.9 mg/dL (0.70-1.30); Calcium 9.2 mg/dL (8.5-10.1); Chloride 104 mmol/L (98-107); Estimated GFR 90.18 (mL/min/1.73m2); Glucose 112 mg/dL (74-106); Potassium 4.2 mmol/L (3.5-5.1); Sodium 138 mmol/L (136-145)
== END 2023-11-04 15:47 | disposition home or self-care (01) ==
LOC: NCHCN 15:46
PROVIDERS: PCP Nurse Practitioner Family; Visit Provider Physician Assistant
DX: I10 Essential (primary) hypertension (principal)
CPT/HCPCS: 80048

== ENCOUNTER 2024-02-24 15:43 | Outpatient (REF) | payer OTHER, MEDICAID, SELFPAY ==
--- NOTE | 2024-02-24 14:35 | PAPNONF_PTH ---
PATIENT: Max Arnold LOC: [facility] U#:[id number] AGE/SX: 73/M ROOM: RE02/24/[address]: Edilma Alford : 1950 BED: DIS: 02/24/2024 SPEC #: [id number] RECD: 02/29/24 13:43 STATUS: SERGEY REBlayne #: [id number] ROSS: 02/24/24 14:[address]: PrashanthNallely DEPT: [facility] Cytology RECD BY: Zari Kessler ENTERED: 02/29/24 13:43 SP TYPE: JEFFREY PAGAN DR: Faiza Tyler Tissues: 1 - BODY FLUID CYTO(SPUTUM/URINE)[facility] Procedures: BODY FLUID CYTO(URINE/SPUTUM) Comments: [id number] (TV = 60 ml, 30 ml CYTOLYT ADDED) (REFRIGERATED)
[2024-02-24 21:41] LABS: Bilirubin Negative (Negative); Blood Large (Negative); Clarity Clear (Clear); Glucose Negative (Negative); Ketones Negative (Negative); Leukocyte Esterase Negative (Negative); Nitrite Negative (Negative); Specific Gravity 1.025 (1.005-1.025); Urobilinogen 0.2 mg/dL (Up to 0.2); pH 5.5 (5-8)
[2024-02-24 23:00] LABS: Bacteria Rare HPF (Negative); C & S Indicated? No; Casts Negative LPF (Negative); Crystals Rare Calcium Oxalate HPF (Negative); Epithelial Cells Rare HPF (Negative); Mucus Negative (Negative); RBC >50 HPF (0-2); WBC 0-2 HPF (0-5)
== END 2024-02-24 15:44 | disposition home or self-care (01) ==
LOC: NCHCN 15:43
PROVIDERS: PCP Nurse Practitioner Family; Visit Provider Nurse Practitioner Family
DX: R31.9 Hematuria, unspecified (principal); R82.998 Other abnormal findings in urine
CPT/HCPCS: 81003; 81015; 88104

== ENCOUNTER 2024-02-29 12:43 | Outpatient (REF) | payer OTHER, MEDICAID, SELFPAY ==
[2024-02-29 20:33] LABS: Bilirubin Negative (Negative); Blood Negative (Negative); Clarity Clear (Clear); Glucose Negative (Negative); Ketones Negative (Negative); Leukocyte Esterase Negative (Negative); Nitrite Negative (Negative); Specific Gravity 1.015 (1.005-1.025); Urobilinogen 0.2 mg/dL (Up to 0.2)
== END 2024-02-29 12:44 | disposition home or self-care (01) ==
LOC: NCHCN 12:43
PROVIDERS: PCP Nurse Practitioner Family; Visit Provider Nurse Practitioner Family
DX: R31.9 Hematuria, unspecified (principal)
CPT/HCPCS: 81003

== ENCOUNTER 2024-05-18 13:18 | Outpatient (REF) | payer OTHER, MEDICAID, SELFPAY ==
[2024-05-18 19:57] LABS: Calculated LDL 59 mg/dL (<100); Cholesterol 120 mg/dL (<200); HDL Cholesterol 56 mg/dL (40-60); Triglyceride 27 mg/dL (<150)
[2024-05-19 21:59] LABS: Hepatitis C Ab w Rflx HCV PCR Negative (Negative)
== END 2024-05-18 13:19 | disposition home or self-care (01) ==
LOC: NCHCN 13:18
PROVIDERS: PCP Nurse Practitioner Family; Visit Provider Physician Assistant
DX: Z11.59 Encounter for screening for other viral diseases (principal); K76.0 Fatty (change of) liver, not elsewhere classified
CPT/HCPCS: 80061; 86803

== ENCOUNTER 2024-06-03 13:08 | Outpatient (REF) | payer OTHER, MEDICAID, SELFPAY ==
[2024-06-03 18:57] LABS: Abs Immature Grans 0.02 10^3/uL (0.0-0.06); Absolute Basophil Count 0.04 10^3/uL (0.0-0.2); Absolute Eosinophil Count 0.16 10^3/uL (0.0-0.7); Absolute Lymphocyte Count 1.69 10^3/uL (1.2-3.4); Absolute Monocyte Count 0.43 10^3/uL (0.1-0.8); Absolute Neutrophil Count 3.79 10^3/uL (1.2-6.7); Basophils % 0.7 %; Eosinophils % 2.6 %; HGB 13.4 g/dL (13.5-17.5); Immature Grans % 0.3 %; Lymphocytes % 27.6 %; MCH 30.7 pg (27.0-33.0); MCHC 33.5 % (32.0-36.0); MCV 92 fL (80-95); MPV 10.5 fL (8.0-11.0); Neutrophils % 61.8 %; Platelet Count 303 10^3/uL (130-400); RBC 4.37 10^6/uL (4.36-5.78); RDW-SD 43.7 fL; WBC 6.13 10^3/uL (4.4-10.8)
[2024-06-03 19:09] LABS: ALT 24 U/L (16-63); AST 14 U/L (15-37); Albumin 3.9 g/dL (3.4-5.0); Alkaline Phosphatase 80 U/L (46-116); Anion Gap 9.7 mmol/L (3-11); BUN 16 mg/dL (7-18); Bilirubin, Total 0.56 mg/dL (0.2-1.0); CO2 24.3 mmol/L (21.0-32.0); CREATININE 0.9 mg/dL (0.70-1.30); Calcium 9.4 mg/dL (8.5-10.1); Chloride 106 mmol/L (98-107); Estimated GFR 89.62 (mL/min/1.73m2); Glucose 101 mg/dL (74-106); Potassium 4.7 mmol/L (3.5-5.1); Sodium 140 mmol/L (136-145); Total Protein 7.2 g/dL (6.4-8.2)
== END 2024-06-03 13:09 | disposition home or self-care (01) ==
LOC: NCHCN 13:08
PROVIDERS: PCP Nurse Practitioner Family; Visit Provider Physician Assistant
DX: K76.0 Fatty (change of) liver, not elsewhere classified (principal)
CPT/HCPCS: 80053; 85025

== ENCOUNTER 2025-06-22 10:42 | Outpatient (REF) | payer MEDICARE, MEDICAID, SELFPAY ==
[2025-06-22 19:53] LABS: HCT 38.2 % (40.0-50.0); HGB 12.7 g/dL (13.5-17.5); MCH 31.1 pg (27.0-33.0); MCHC 33.2 % (32.0-36.0); MCV 94 fL (80-95); MPV 10.1 fL (8.0-11.0); Platelet Count 355 10^3/uL (130-400); RBC 4.08 10^6/uL (4.36-5.78); RDW 14.1 % (11.8-14.1); RDW-SD 48.6 fL; WBC 7.24 10^3/uL (4.4-10.8)
[2025-06-22 20:15] LABS: ALT 38 U/L (16-63); AST 26 U/L (15-37); Albumin 4.2 g/dL (3.4-5.0); Alkaline Phosphatase 74 U/L (46-116); Anion Gap 8.3 mmol/L (3-11); BUN 15 mg/dL (7-18); Bilirubin, Total 1.0 mg/dL (0.2-1.0); CO2 25.7 mmol/L (21.0-32.0); Calcium 9.4 mg/dL (8.5-10.1); Chloride 104 mmol/L (98-107); Glucose 97 mg/dL (74-106); Potassium 4.3 mmol/L (3.5-5.1); Sodium 138 mmol/L (136-145); Total Protein 7.3 g/dL (6.4-8.2)
== END 2025-06-22 10:43 | disposition home or self-care (01) ==
LOC: NCHCN 10:42
PROVIDERS: PCP Nurse Practitioner Family; Visit Provider Physician Assistant
DX: I10 Essential (primary) hypertension (principal)
CPT/HCPCS: 80053; 85027